=== PATIENT | female | born 1975 | race African-American/Black ===

== ENCOUNTER 2019-04-03 18:49 | Inpatient (IN) | payer MEDICARE, MEDICAID ==
[~2019-04-03] VITALS: Ht 154.9 cm; Wt 95.3 kg
[2019-04-03] MEDS ORDERED: HALO10 PO (19:01)
[2019-04-03] MEDS ORDERED: CHLO100T24 PO (19:01)
[2019-04-03] MEDS ORDERED: BENZ2TAB10 PO (19:02)
[2019-04-03 20:37] LABS: BASOPHILS % (AUTO) 0.6 % (0.0-2.0); EOSINOPHILS % (AUTO) 3.4 % (1.0-6.0); HEMATOCRIT 42.4 % (36-46); HEMOGLOBIN 14.4 g/dL (12.0-16.0); LYMPHOCYTES # (AUTO) 1.4 K/uL (1.0-4.8); LYMPHOCYTES % (AUTO) 17.4 % (22.0-44.0); MEAN CORPUSCULAR HEMOGLOBIN 31.5 pg (26.0-34.0); MEAN CORPUSCULAR HGB CONC 33.9 G/dL (31.0-37.0); MEAN CORPUSCULAR VOLUME 93 fL (80-100); MONOCYTES # (AUTO) 0.8 K/uL (0.1-1.0); MONOCYTES % (AUTO) 10.3 % (2.0-9.0); NEUTROPHILS # (AUTO) 5.6 K/uL (1.8-7.7); NEUTROPHILS % (AUTO) 68.3 % (40.0-70.0); PLATELET COUNT (AUTO) 371 K/uL (150-450); RED BLOOD CELL COUNT(AUTO) 4.56 MIL/uL (4.00-5.20); RED CELL DISTRIBUTION WIDTH 13.5 % (11.5-14.5)
[2019-04-03 20:47] LABS: ANION GAP 9 mmol/L (8-16); CALCIUM, TOTAL 9.7 mg/dL (8.8-10.5); CARBON DIOXIDE 27 mmol/L (22-29); CHLORIDE 100 mmol/L (98-107); CREATININE 0.88 mg/dL (0.60-1.30); GLOMERULAR FILTR. RATE CALC > 60 mL/min (>60); GLUCOSE,RANDOM 101 mg/dL (70-110); POTASSIUM 3.6 mmol/L (3.5-5.1); SODIUM SERUM 136 mmol/L (136-145); UREA NITROGEN, BLOOD 10 mg/dL (7-18)
[2019-04-03 20:58] LABS: ALANINE AMINOTRANSFERASE 115 U/L (12-78); ALBUMIN 3.8 g/dL (3.4-5.0); ALKALINE PHOSPHATASE 63 U/L (46-116); ASPARTATE AMINOTRANSFERASE 62 U/L (15-37); BILIRUBIN,TOTAL 0.4 mg/dL (0.1-1.0); HCG,QUANTITATIVE < 1 mIU/mL (0-6); LIPASE 142 U/L (73-393); TOTAL PROTEIN, SERUM 7.8 g/dL (6.4-8.2)
[2019-04-03 22:26] LABS: APPEARANCE,URINE CLEAR (CLEAR); GLUCOSE, URINE (UA) NEGATIVE (NEGATIVE); KETONES,URINE 40 mg/dL (NEGATIVE); LEUKOCYTE ESTERASE ,URINE NEGATIVE (NEGATIVE); NITRATE,URINE NEGATIVE (NEGATIVE); OCCULT BLOOD,URINE TRACE (NEGATIVE); PH,URINE 5.5 (5.0-8.0); PROTEIN,URINE NEGATIVE (NEGATIVE)
[2019-04-03 22:31] LABS: AMPHET/METH SCREEN,URINE NEGATIVE (NEGATIVE); BARBITURATE SCREEN, URINE NEGATIVE (NEGATIVE); BENZODIAZEPINES SCREEN,URINE NEGATIVE (NEGATIVE); CANNABINOID SCREEN,URINE NEGATIVE (NEGATIVE); COCAINE SCREEN,URINE NEGATIVE (NEGATIVE); METHADONE SCREEN, URINE NEGATIVE (NEGATIVE); OPIATE SCREEN,URINE NEGATIVE (NEGATIVE)
[2019-04-03 22:41] LABS: PHENCYCLIDINE SCREEN,URINE NEGATIVE (NEGATIVE)
[2019-04-03 22:44] LABS: BILIRUBIN,URINE PRELIM. POSITIVE (NEGATIVE)
[2019-04-03 22:51] LABS: BACTERIA,URINE Few /HPF (None Seen); RBC,URINE 0-2 /HPF (0-2); WBC,URINE 0-2 /HPF (0-5)
[2019-04-03 22:52] LABS: SQUAMOUS EPITHELIAL CELL,UR Few /LPF (None Seen)
[2019-04-03 22:53] LABS: MUCUS,URINE Few LPF (None Seen)
[2019-04-03] MEDS ORDERED: ZOLPIDEM TARTRATE 10 MG TABLET PO PRN (23:30)
[2019-04-03] MEDS ORDERED: HALOPERIDOL 5 MG TABLET PO PRN (23:30)
[2019-04-04] MEDS: LORazepam 2 MG TABLET PO PRN (02:34)
[2019-04-04 04:00] VITALS: BP 124/82
[2019-04-04 08:27] VITALS: BP 122/81
[2019-04-04] MEDS ORDERED: NALTREXONE HCL 50 MG TABLET PO SCH (09:00)
[2019-04-04] MEDS ORDERED: PROMETHAZINE HCL 25 MG TABLET PO PRN (10:30)
[2019-04-04] MEDS ORDERED: ACETAMINOPHEN 325 MG TABLET PO PRN (10:30)
[2019-04-04] MEDS ORDERED: TUBERCULIN, PURIFIED PROTEIN DERIVATIVE 5 TU/0.1 ML SYRINGE ID ONE (10:30)
[2019-04-04] MEDS ORDERED: GuaiFENesin/D-METHORPHAN [SUGAR-FREE] 200-20MG/10 ML SYRUP UDCUP PO PRN (10:30)
[2019-04-04] MEDS ORDERED: MAGNESIUM HYDROXIDE SUSPENSION 30 ML UDCUP PO PRN (10:30)
[2019-04-04] MEDS ORDERED: MAG HYDROX/AL HYDROX/SIMETH ES 30 ML SUSPENSION UDCUP PO PRN (10:30)
[2019-04-04] MEDS ORDERED: LOPERAMIDE HCL 2 MG CAPSULE PO PRN (10:30)
[2019-04-04] MEDS ORDERED: HydrOXYzine PAMOATE 50 MG CAPSULE PO PRN (10:30)
[2019-04-04 16:24] VITALS: BP 125/92
[2019-04-04] MEDS: THIAMINE HCL 100 MG TABLET PO SCH (16:31)
[2019-04-04] MEDS: DIVALPROEX SODIUM 500 MG ER TABLET PO SCH (20:38)
[2019-04-04] MEDS: HALOPERIDOL 10 MG TABLET PO SCH (20:38)
[2019-04-05] MEDS: FOLIC ACID 1 MG TABLET PO SCH (08:04)
[2019-04-05] MEDS: THIAMINE HCL 100 MG TABLET PO SCH ×2 (08:04→17:03)
[2019-04-05] MEDS: LORazepam 2 MG TABLET PO PRN (08:04)
[2019-04-05] MEDS: DOCUSATE SODIUM 100 MG CAPSULE PO SCH (08:04)
[2019-04-05] MEDS: MULTIVITAMINS WITH MINERALS, THERAPEUTIC TABLET PO SCH (08:04)
[2019-04-05 08:21] VITALS: BP 106/82
[2019-04-05 08:42] LABS: BASOPHILS % (AUTO) 0.6 % (0.0-2.0); EOSINOPHILS % (AUTO) 5.1 % (1.0-6.0); HEMATOCRIT 43.2 % (36-46); HEMOGLOBIN 14.5 g/dL (12.0-16.0); LYMPHOCYTES # (AUTO) 1.3 K/uL (1.0-4.8); LYMPHOCYTES % (AUTO) 19.1 % (22.0-44.0); MEAN CORPUSCULAR HEMOGLOBIN 31.5 pg (26.0-34.0); MEAN CORPUSCULAR HGB CONC 33.5 G/dL (31.0-37.0); MEAN CORPUSCULAR VOLUME 94 fL (80-100); MONOCYTES # (AUTO) 0.4 K/uL (0.1-1.0); MONOCYTES % (AUTO) 6.3 % (2.0-9.0); NEUTROPHILS # (AUTO) 4.5 K/uL (1.8-7.7); NEUTROPHILS % (AUTO) 68.9 % (40.0-70.0); PLATELET COUNT (AUTO) 381 K/uL (150-450); RED BLOOD CELL COUNT(AUTO) 4.59 MIL/uL (4.00-5.20); RED CELL DISTRIBUTION WIDTH 13.7 % (11.5-14.5)
[2019-04-05 09:07] LABS: HEMOGLOBIN A1C 5.5 % (4.5-6.2)
[2019-04-05 09:27] LABS: ALANINE AMINOTRANSFERASE 169 U/L (12-78); ALBUMIN 3.5 g/dL (3.4-5.0); ALKALINE PHOSPHATASE 66 U/L (46-116); ANION GAP 11 mmol/L (8-16); ASPARTATE AMINOTRANSFERASE 75 U/L (15-37); BILIRUBIN,TOTAL 0.4 mg/dL (0.1-1.0); CALCIUM, TOTAL 9.1 mg/dL (8.8-10.5); CARBON DIOXIDE 25 mmol/L (22-29); CHLORIDE 102 mmol/L (98-107); CHOL/HDL RATIO 2.8 (3.9-5.7); CHOLESTEROL 151 mg/dL (131-200); CREATININE 0.85 mg/dL (0.60-1.30); FREE T4 (FREE THYROXINE) 1.31 ng/dL (0.76-1.46); GLOMERULAR FILTR. RATE CALC > 60 mL/min (>60); GLUCOSE,RANDOM 125 mg/dL (70-110); HCG,QUANTITATIVE < 1 mIU/mL (0-6); HDL CHOLESTEROL 53 mg/dL (40-60); LDL CHOL (CALC.) 88 mg/dL (0-130); POTASSIUM 3.6 mmol/L (3.5-5.1); SODIUM SERUM 138 mmol/L (136-145); THYROID STIMULATING HORMONE 2.31 uIU/mL (0.36-3.74); TOTAL PROTEIN, SERUM 7.3 g/dL (6.4-8.2); TRIGLYCERIDES 52 mg/dL (15-150); UREA NITROGEN, BLOOD 8 mg/dL (7-18)
[2019-04-05 16:10] VITALS: BP 122/82
[2019-04-05] MEDS: HALOPERIDOL 10 MG TABLET PO SCH (20:38)
[2019-04-05] MEDS: DIVALPROEX SODIUM 500 MG ER TABLET PO SCH (20:38)
[2019-04-05] MEDS: [UNRECOGNIZED DRUG - OTHER] PO SCH (20:38)
[2019-04-06 00:10] VITALS: BP 120/82
[2019-04-06 08:34] VITALS: BP 115/81
[2019-04-06] MEDS: DOCUSATE SODIUM 100 MG CAPSULE PO SCH (09:54)
[2019-04-06] MEDS: THIAMINE HCL 100 MG TABLET PO SCH ×2 (09:54→17:00)
[2019-04-06] MEDS: MULTIVITAMINS WITH MINERALS, THERAPEUTIC TABLET PO SCH (09:54)
[2019-04-06] MEDS: FOLIC ACID 1 MG TABLET PO SCH (09:54)
[2019-04-06 16:15] VITALS: BP 108/80
[2019-04-06] MEDS: HALOPERIDOL 10 MG TABLET PO SCH (20:04)
[2019-04-06] MEDS: DIVALPROEX SODIUM 500 MG ER TABLET PO SCH (20:04)
[2019-04-06] MEDS: [UNRECOGNIZED DRUG - OTHER] PO SCH (20:05)
[2019-04-07 01:58] VITALS: BP 114/75
[2019-04-07] MEDS: DOCUSATE SODIUM 100 MG CAPSULE PO SCH (09:15)
[2019-04-07] MEDS: THIAMINE HCL 100 MG TABLET PO SCH ×2 (09:15→16:31)
[2019-04-07] MEDS: MULTIVITAMINS WITH MINERALS, THERAPEUTIC TABLET PO SCH (09:15)
[2019-04-07] MEDS: FOLIC ACID 1 MG TABLET PO SCH (09:15)
[2019-04-07 10:07] VITALS: BP 114/76
[2019-04-07] MEDS ORDERED: DIVA500T52 PO ×2 (15:35→16:11)
[2019-04-07] MEDS ORDERED: HALO10 PO ×2 (15:35→16:12)
[2019-04-07] MEDS ORDERED: BENZ2TAB10 PO (15:35)
[2019-04-07] MEDS ORDERED: BENZTROPINE MESYLATE 2 MG TABLET PO SCH (17:00)
== END 2019-04-07 18:40 | disposition home or self-care (01) | DRG 885 ==
LOC: EMS 18:51 → B2X 04-04 01:00
PROVIDERS: ADMIT Psychiatry & Neurology Psychiatry; ATTEND Psychiatry & Neurology Psychiatry
DX: F25.0 Schizoaffective disorder, bipolar type (principal); Z79.899 Other long term (current) drug therapy
CPT/HCPCS: 80074; 80173; 83036; 84439; 84443; G0480

== ENCOUNTER 2021-12-20 10:38 | Inpatient (IN) | payer MEDICARE, MEDICAID ==
[~2021-12-20] VITALS: Ht 160 cm; Wt 94.4 kg
[~2021-12-20 10:38] MED LIST: BENZ2TAB76 PO; DIVA-80 PO; HALO10 PO
[2021-12-20] MEDS ORDERED: CHLO100T42 PO (12:46)
[2021-12-20] MEDS ORDERED: ACETAMINOPHEN 325 MG TABLET PO PRN (16:15)
[2021-12-20] MEDS ORDERED: MAGNESIUM HYDROXIDE SUSPENSION 30 ML UDCUP PO PRN (16:15)
[2021-12-20] MEDS ORDERED: HALOPERIDOL 5 MG TABLET PO PRN (16:15)
[2021-12-20] MEDS ORDERED: ZOLPIDEM TARTRATE 10 MG TABLET PO PRN (16:15)
[2021-12-20] MEDS ORDERED: PROMETHAZINE HCL 25 MG TABLET PO PRN (16:15)
[2021-12-20] MEDS ORDERED: GuaiFENesin/D-METHORPHAN [SUGAR-FREE] 200-20MG/10 ML SYRUP UDCUP PO PRN (16:15)
[2021-12-20] MEDS ORDERED: LORazepam 2 MG TABLET PO PRN (16:15)
[2021-12-20] MEDS ORDERED: LOPERAMIDE HCL 2 MG CAPSULE PO PRN (16:15)
[2021-12-20] MEDS ORDERED: HydrOXYzine PAMOATE 50 MG CAPSULE PO PRN (16:15)
[2021-12-20] MEDS ORDERED: MAG HYDROX/AL HYDROX/SIMETH ES 30 ML SUSPENSION UDCUP PO PRN (16:15)
[2021-12-20] MEDS ORDERED: TUBERCULIN, PURIFIED PROTEIN DERIVATIVE 5 TU/0.1 ML SYRINGE ID ONE (16:15)
[2021-12-20 16:18] LABS: BASOPHILS % (AUTO) 0.5 % (0.0-2.0); EOSINOPHILS % (AUTO) 2.7 % (1.0-6.0); HEMATOCRIT 37.7 % (36-46); HEMOGLOBIN 12.2 g/dL (12.0-16.0); LYMPHOCYTES # (AUTO) 1.3 K/uL (1.0-4.8); LYMPHOCYTES % (AUTO) 16.1 % (22.0-44.0); MEAN CORPUSCULAR HEMOGLOBIN 25.6 pg (26.0-34.0); MEAN CORPUSCULAR HGB CONC 32.2 G/dL (31.0-37.0); MEAN CORPUSCULAR VOLUME 79 fL (80-100); MONOCYTES # (AUTO) 0.7 K/uL (0.1-1.0); MONOCYTES % (AUTO) 8.2 % (2.0-9.0); NEUTROPHILS % (AUTO) 72.5 % (40.0-70.0); PLATELET COUNT (AUTO) 540 K/uL (150-450); RED BLOOD CELL COUNT(AUTO) 4.75 MIL/uL (4.00-5.20); RED CELL DISTRIBUTION WIDTH 17.4 % (11.5-14.5)
[2021-12-20] MEDS ORDERED: NORE-89 PO (16:18)
[2021-12-20] MEDS ORDERED: FLUV50TA24 PO (16:18)
[2021-12-20 16:27] LABS: ANION GAP 10 mmol/L (8-16); CALCIUM, TOTAL 8.6 mg/dL (8.8-10.5); CARBON DIOXIDE 29 mmol/L (22-29); CHLORIDE 102 mmol/L (98-107); CREATININE 0.63 mg/dL (0.60-1.30); GLOMERULAR FILTR. RATE CALC > 60 mL/min (>60); GLUCOSE,RANDOM 101 mg/dL (70-110); POTASSIUM 3.7 mmol/L (3.5-5.1); SODIUM SERUM 141 mmol/L (136-145); UREA NITROGEN, BLOOD 15 mg/dL (7-18)
[2021-12-20 16:32] LABS: ALANINE AMINOTRANSFERASE 53 U/L (12-78); ALBUMIN 3.1 g/dL (3.4-5.0); ALKALINE PHOSPHATASE 60 U/L (46-116); ASPARTATE AMINOTRANSFERASE 23 U/L (15-37); BILIRUBIN,TOTAL 0.2 mg/dL (0.1-1.0); TOTAL PROTEIN, SERUM 7.4 g/dL (6.4-8.2)
[2021-12-20 17:01] LABS: COVID AG,FIA SOURCE NASOPHARYNGEAL
[2021-12-20 18:30] VITALS: BP 117/77
[2021-12-20] MEDS: THIAMINE 100 MG TABLET PO SCH (19:19)
[2021-12-20] MEDS: BENZTROPINE MESYLATE 2 MG TABLET PO SCH (19:19)
[2021-12-20] MEDS: ChlorproMAZINE HCL 100 MG TABLET PO SCH (20:04)
[2021-12-20] MEDS: MELATONIN 5 MG TABLET PO SCH (20:04)
[2021-12-20] MEDS: HALOPERIDOL 10 MG TABLET PO SCH (20:05)
[2021-12-20] MEDS ORDERED: DIVALPROEX SODIUM 500 MG ER TABLET PO SCH (21:00)
[2021-12-20] MEDS ORDERED: *NON-FORMULARY MED [ENTER DRUG, DOSE, FREQ IN COMMENTS] CLINICAL SCH (21:30)
[2021-12-20] MEDS ORDERED: *NON-FORMULARY MED [ENTER DRUG, DOSE, FREQ IN COMMENTS] CLINICAL ONE (21:45)
[2021-12-20] MEDS: ETHINYL ESTRADIOL PO SCH (22:20)
[2021-12-20] MEDS: DOCUSATE SODIUM 100 MG CAPSULE PO SCH (22:20)
[2021-12-20] MEDS: NORETHINDRONE ACETATE PO SCH (22:20)
[2021-12-21 08:14] VITALS: BP 131/86
[2021-12-21] MEDS: NALTREXONE HCL 50 MG TABLET PO SCH (09:53)
[2021-12-21] MEDS: FOLIC ACID 1 MG TABLET PO SCH (09:54)
[2021-12-21] MEDS: BENZTROPINE MESYLATE 2 MG TABLET PO SCH ×2 (09:54→16:21)
[2021-12-21] MEDS: THIAMINE 100 MG TABLET PO SCH ×2 (09:54→16:21)
[2021-12-21] MEDS: MULTIVITAMINS WITH MINERALS, THERAPEUTIC TABLET PO SCH (09:55)
[2021-12-21 10:09] LABS: HEMOGLOBIN A1C 5.7 % (3.8-5.6)
[2021-12-21 10:18] LABS: CHOL/HDL RATIO 2.9 (3.9-5.7); FREE T4 (FREE THYROXINE) 1.01 ng/dL (0.76-1.46); THYROID STIMULATING HORMONE 2.33 uIU/mL (0.36-3.74)
[2021-12-21] MEDS ORDERED: VALPROIC ACID 250 MG/5 ML SOLUTION UDCUP PO ONE (11:15)
[2021-12-21 16:09] VITALS: BP 130/76
[2021-12-21] MEDS: NORETHINDRONE ACETATE PO SCH (20:34)
[2021-12-21] MEDS: ETHINYL ESTRADIOL PO SCH (20:34)
[2021-12-21] MEDS: ChlorproMAZINE HCL 100 MG TABLET PO SCH (20:36)
[2021-12-21] MEDS: MELATONIN 5 MG TABLET PO SCH (20:36)
[2021-12-21] MEDS: HALOPERIDOL 10 MG TABLET PO SCH (20:36)
[2021-12-21] MEDS: DOCUSATE SODIUM 100 MG CAPSULE PO SCH (20:36)
[2021-12-22] MEDS: VALPROIC ACID 250 MG/5 ML SOLUTION UDCUP PO SCH (08:09)
[2021-12-22] MEDS: THIAMINE 100 MG TABLET PO SCH ×2 (08:09→16:01)
[2021-12-22] MEDS: BENZTROPINE MESYLATE 2 MG TABLET PO SCH ×2 (08:09→16:00)
[2021-12-22] MEDS: FOLIC ACID 1 MG TABLET PO SCH (08:09)
[2021-12-22] MEDS: NALTREXONE HCL 50 MG TABLET PO SCH (08:09)
[2021-12-22] MEDS: MULTIVITAMINS WITH MINERALS, THERAPEUTIC TABLET PO SCH (08:09)
[2021-12-22 08:10] VITALS: BP 97/58
[2021-12-22 16:34] VITALS: BP 126/78
[2021-12-22] MEDS ORDERED: BENZ2TAB76 PO (16:35)
[2021-12-22] MEDS ORDERED: MELA5TAB40 PO (16:35)
[2021-12-22] MEDS ORDERED: VALP250S23 PO (16:35)
[2021-12-22] MEDS ORDERED: CHLO100T42 PO (16:35)
[2021-12-22] MEDS ORDERED: HALO10 PO (16:35)
[2021-12-22] MEDS ORDERED: NALT50TA PO (16:41)
[2021-12-22] MEDS: NORETHINDRONE ACETATE PO SCH (20:18)
[2021-12-22] MEDS: ETHINYL ESTRADIOL PO SCH (20:18)
[2021-12-22] MEDS: DOCUSATE SODIUM 100 MG CAPSULE PO SCH (20:21)
[2021-12-22] MEDS: MELATONIN 5 MG TABLET PO SCH (20:21)
[2021-12-22] MEDS: HALOPERIDOL 10 MG TABLET PO SCH (20:22)
[2021-12-22] MEDS: ChlorproMAZINE HCL 100 MG TABLET PO SCH (20:22)
[2021-12-23] MEDS: VALPROIC ACID 250 MG/5 ML SOLUTION UDCUP PO SCH (08:31)
[2021-12-23] MEDS: FOLIC ACID 1 MG TABLET PO SCH (08:32)
[2021-12-23] MEDS: THIAMINE 100 MG TABLET PO SCH (08:32)
[2021-12-23] MEDS: BENZTROPINE MESYLATE 2 MG TABLET PO SCH (08:32)
[2021-12-23] MEDS: NALTREXONE HCL 50 MG TABLET PO SCH (08:34)
[2021-12-23] MEDS: MULTIVITAMINS WITH MINERALS, THERAPEUTIC TABLET PO SCH (08:34)
[2021-12-23] MEDS ORDERED: NALTREXONE HCL 50 MG TABLET PO SCH (09:00)
[2021-12-23 10:20] VITALS: BP 131/86
== END 2021-12-23 11:15 | disposition home or self-care (01) | DRG 885 ==
LOC: EMS 10:38 → 3EC 16:01
PROVIDERS: ADMIT Psychiatry & Neurology Psychiatry; ATTEND Psychiatry & Neurology Psychiatry
DX: F25.9 Schizoaffective disorder, unspecified (principal); F70 Mild intellectual disabilities; D75.839 Thrombocytosis, unspecified; Z20.822 Contact with and (suspected) exposure to COVID-19; E88.09 Other disorders of plasma-protein metabolism, not elsewhere classified; F42.9 Obsessive-compulsive disorder, unspecified; F84.0 Autistic disorder; K64.9 Unspecified hemorrhoids; Z63.9 Problem related to primary support group, unspecified; Z91.51 Personal history of suicidal behavior; K59.00 Constipation, unspecified; I10 Essential (primary) hypertension
CPT/HCPCS: 80053; 80061; 80164; 83036; 84439; 84443; 85025; 86592; 99285; G0480; Q9967